=== PATIENT | female | born 1995 | race Two or more races ===

== ENCOUNTER 2021-01-29 18:41 | Emergency (ER) | payer MEDICAID ==
[~2021-01-29] VITALS: Ht 152.4 cm; Wt 54.4 kg
--- NOTE | 2021-01-29 19:05 | NUR ---
pt bibself c/o vaginal bleeding that started today at 10am. Pt aaox4 breathing evenly and unlabored. Pt attached to monitor and pox. Pt states that she discovered she is about 8 weeks last week. Pt unable to recall hospital or dr name where she was tested for . Pt given blanket and call light within reach
[2021-01-29 19:18] LABS: BASOPHILS # (AUTO) 0.1 K/uL (0.0-0.2); BASOPHILS % (AUTO) 1.3 % (0.0-2.0); EOSINOPHILS % (AUTO) 0.3 % (0.0-6.0); HEMATOCRIT 35 % (33-45); HEMOGLOBIN 11.8 g/dL (11.5-14.8); LYMPHOCYTES # (AUTO) 2.2 K/uL (0.8-4.8); LYMPHOCYTES % (AUTO) 23.9 % (20.0-44.0); MEAN CORPUSCULAR HGB CONC 34 g/dl (31.0-36.0); MEAN CORPUSCULAR VOLUME 91 fL (82-100); MONOCYTES # (AUTO) 0.5 K/uL (0.1-1.30); MONOCYTES % (AUTO) 5.2 % (2.0-12.0); NEUTROPHILS # (AUTO) 6.2 K/uL (1.8-8.9); NEUTROPHILS % (AUTO) 69.3 % (43.0-81.0); PLATELET COUNT (AUTO) 271 K/uL (150-450); RED BLOOD CELL COUNT(AUTO) 3.85 MIL/uL (4.0-5.2)
[2021-01-29 19:27] LABS: BILIRUBIN,URINE SMALL (NEGATIVE); COLOR,URINE YELLOW (YELLOW); LEUKOCYTE ESTERASE ,URINE Negative (NEGATIVE); NITRITE, URINE Negative (NEGATIVE); PH,URINE 5.5 (5.0-8.0); PROTEIN,URINE 30 mg/dl (NEGATIVE); UGLUCOSE Negative (NEGATIVE); UROBILINOGEN,URINE 0.2 EU/dL (0.2)
[2021-01-29 19:42] LABS: RBC,URINE 51-80 /HPF (0-2)
[2021-01-29 19:43] LABS: BACTERIA,URINE Few /HPF (None Seen); MUCUS,URINE Few /LPF (None Seen); SQUAMOUS EPITHELIAL CELL,UR 0-2 /HPF (None Seen)
--- NOTE | 2021-01-29 19:44 | NUR ---
Per lab, not Rho juanjose candidate
--- NOTE | 2021-01-29 19:50 | NUR ---
us at bedside
--- NOTE | 2021-01-29 20:29 | NUR ---
Patient discharged to home in stable condition. Written and verbal after care instructions given. Patient verbalizes understanding of instruction.
[2021-01-29 20:38] VITALS: BP 118/66
== END 2021-01-29 20:38 | disposition home or self-care (01) ==
LOC: ER 18:45
DX: O03.9 Complete or unspecified spontaneous abortion without complication (principal); Z3A.00 Weeks of gestation of pregnancy not specified
CPT/HCPCS: 36415; 76805-TC; 81001; 84702-TC; 85025-TC